=== PATIENT | male | born 1965 | race Caucasian/White ===

== ENCOUNTER 2017-12-17 17:16 | Emergency (ER) | payer OTHER ==
--- NOTE | 2017-12-17 17:28 | ER Document Report ---
ED General - General Stated Complaint: POSSIBLE OVERDOSE Time Seen by Provider: 12/17/17 17:26 Mode of Arrival: Medic Information source: Patient, Emergency Med Personnel Notes: This is a 51-year-old man with a history of hepatitis C and heroin abuse who is in a hotel with his girlfriend and he reports doing heroin by injection. He states he took 4/10 of a gram. The girlfriend apparently found him unresponsive and not breathing and cold JVD who found the patient in respiratory arrest. They bagged the patient until EMS arrived at which time the patient was given 4 mg of intranasal Narcan. The patient was awoken at that time and alert and oriented 3. The patient was told by KAYKAY Dnun that he was going to be made an IVC and brought to the emergency room if he did not voluntarily come into the ER by EMS. The patient agreed to be evaluated in the emergency room. He states he has no complaints at this time. TRAVEL OUTSIDE OF THE [place] IN LAST 30 DAYS: No - HPI Onset: Just prior to arrival Onset/Duration: Sudden Quality of pain: No pain Severity: None Pain Level: Denies Associated symptoms: denies: Chest pain, Fever, Shortness of breath Exacerbated by: Denies Relieved by: Denies Similar symptoms previously: No Recently seen / treated by doctor: No - Related Data Allergies/Adverse Reactions: No Known Allergies Allergy (Verified 02/19/16 15:40) Past Medical History - General Information source: Patient - Social History Smoking Status: Never Smoker Cigarette use (# per day): No Chew tobacco use (# tins/day): No Smoking Education Provided: No Frequency of alcohol use: None Drug Abuse: None Lives with: Family Family History: Reviewed & Not Pertinent - Medical History Medical History: Negative Pulmonary Medical History: Denies: Hx Tuberculosis Surgical Hx: Negative Review of Systems - Review of Systems Constitutional: denies: Chills, Fever EENT: No symptoms reported Cardiovascular: No symptoms reported Respiratory: No symptoms reported Gastrointestinal: No symptoms reported Genitourinary: No symptoms reported Male Genitourinary: No symptoms reported Musculoskeletal: No symptoms reported Skin: No symptoms reported Hematologic/Lymphatic: No symptoms reported Neurological/Psychological: See HPI Physical Exam - Vital signs Vitals: Resp Pulse Ox 14 96 12/17/17 17:19 12/17/17 17:19 Notes: Physical exam: GENERAL: 31-year-old man, alert and oriented 3, no acute distress HEAD: Atraumatic, normocephalic. EYES: Pupils equal round and reactive to light, extraocular movements intact, sclera anicteric, conjunctiva are normal. ENT: TMs normal, nares patent, oropharynx clear without exudates. Moist mucous membranes. NECK: Normal range of motion, supple without obvious mass or JVD. LUNGS: Breath sounds clear to auscultation bilaterally and equal. No wheezes rales or rhonchi. HEART: Regular rate and rhythm without murmurs, rubs or gallops. ABDOMEN: Soft, normoactive bowel sounds. No tenderness to palpation. No guarding, no rebound. No masses appreciated. EXTREMITIES: Normal range of motion, no pitting or edema. No clubbing or cyanosis. NEUROLOGICAL: Cranial nerves II through XII grossly intact. Normal speech, moving all extremities. PSYCH: Normal mood, normal affect. SKIN: Warm, Dry, normal turgor, no rashes or lesions noted. Course - Re-evaluation Re-evalutation: 12/17/17 19:43 Note: The patient is being watched since arrival. He has been requesting to leave for quite some time. He has been alert and oriented 3. I have explained to him that the medicine given (Narcan) may not last longer than the actual narcotic taken. If this is the case, he is risk of having relapse of his respiratory depression and cardiac arrest. He is well aware of this but is insisting on leaving. He is alert and oriented 3 and appears quite competent at this time. He denies any suicidal or homicidal ideation. He denies any hallucinations. We will give him a prescription for Narcan. I did initially request a consult with the psychologist data migration consultant which is not taken place yet. However, the patient is now willing to wait any longer. 12/18/17 00:06 - Vital Signs Vital signs: Temp Pulse Resp BP Pulse Ox 96.1 F L 100 13 140/97 H 97 12/17/17 17:26 12/17/17 17:26 12/17/17 19:31 12/17/17 19:31 12/17/17 19:31 - Laboratory Result Diagrams: 12/17/17 17:40 12/17/17 17:40 Laboratory results interpreted by me: 12/17/17 17:40 Glucose 232 H Direct Bilirubin 0.5 H AST 113 H ALT 94 H Discharge - Discharge Clinical Impression: Heroin overdose Condition: Stable Disposition: HOME, SELF-CARE Additional Instructions: As of 2017, the [place] Division of Public Health recommends the precription of Narcan (Naloxone) to patient's discharged after an opiod overdose. Naloxone is an injection that reverses the respiratory depression caused by opiates and is life-saving in many cases. Of course, it is recommended that you stop any narcotic or opiate use/abuse. However, if this is not possible, you should always carry the Naloxone with you and let family/friends know that you have this reversal antidote. Information on Naloxone can be found on: www.naloxonesaves.org Additionally: If you are using syringes with drug use, you should know that syringe exchange programs are effective in reducing the rates of HIV and Hepatitis C. Information available for syring programs can be found at: www/[facility].gov/divisions/public-health/rpzxd-vgogvoxs-ufnke-syringe-initiative/ ooajfp-wbdphcma-hnpynynn-[place]ver Prescriptions: Naloxone HCl [Narcan] 4 mg NS ONCE PRN #1 spray PRN Reason:
[2017-12-17 18:02] LABS: ABSOLUTE BASOPHILS # (AUTO) 0.1 10^3/uL (0.0-0.2); ABSOLUTE EOSINOPHILS # (AUTO) 0.4 10^3/uL (0.0-0.6); ABSOLUTE LYMPHOCYTES (AUTO) 1.8 10^3/uL (0.5-4.7); ABSOLUTE MONOCYTES (AUTO) 0.6 10^3/uL (0.1-1.4); ABSOLUTE NEUT (AUTO) 4.2 10^3/uL (1.7-8.2); BASOPHILS % (AUTO) 1.2 % (0-2); EOSINOPHILS % (AUTO) 5.6 % (0-6); HEMATOCRIT 42.7 % (37.9-51.0); HEMOGLOBIN 14.4 g/dL (13.5-17.0); LYMPHOCYTES % (AUTO) 25.8 % (13-45); MEAN CORPUSCULAR HEMOGLOBIN 30.5 pg (27.0-33.4); MEAN CORPUSCULAR HGB CONC 33.6 g/dL (32.0-36.0); MEAN CORPUSCULAR VOLUME 91 fl (80-97); MONOCYTES % (AUTO) 8.2 % (3-13); RED BLOOD COUNT 4.71 10^6/uL (4.35-5.55); RED CELL DISTRIBUTION WIDTH 13.8 % (11.5-14.0); SEGMENTED NEUTROPHILS % (AUTO) 59.2 % (42-78); TOTAL CELLS COUNTED % (AUTO) 100 %
[2017-12-17 18:12] LABS: ALANINE AMINOTRANSFERASE 94 U/L (21-72); ALBUMIN 4.5 g/dL (3.5-5.0); ALKALINE PHOSPHATASE 85 U/L (38-126); ANION GAP 13 (5-19); ASPARTATE AMINO TRANSFERASE 113 U/L (17-59); BILIRUBIN,DIRECT 0.5 mg/dL (0.0-0.4); BILIRUBIN,TOTAL 0.5 mg/dL (0.2-1.3); BLOOD UREA NITROGEN 9 mg/dL (7-20); CALCIUM 9.3 mg/dL (8.4-10.2); CARBON DIOXIDE 28 mmol/L (22-30); CHLORIDE 101 mmol/L (98-107); GLUCOSE 232 mg/dL (75-110); POTASSIUM 3.6 mmol/L (3.6-5.0); SODIUM 142.2 mmol/L (137-145); TOTAL PROTEIN 7.9 g/dL (6.3-8.2)
[2017-12-17 18:20] LABS: PLATELET COUNT 222 10^3/uL (150-450)
--- NOTE | 2017-12-17 21:23 | EKG REPORT ---
SEVERITY:- NORMAL ECG - SINUS RHYTHM : Confirmed by: Oly Hopper 17-Dec-2017 21:23:09
[2017-12-17 23:21] VITALS: BP 140/97
== END 2017-12-17 20:00 | disposition home or self-care (01) ==
LOC: ER 17:16
DX: T40.1X1A Poisoning by heroin, accidental (unintentional), initial encounter (principal); Z86.19 Personal history of other infectious and parasitic diseases
CPT/HCPCS: 36415; 80053; 85025; 93005; 93010; 99285

== ENCOUNTER 2020-01-24 14:53 | Emergency (ER) | payer OTHER ==
[2020-01-24 15:37] LABS: ABSOLUTE EOSINOPHILS # (AUTO) 0.1 10^3/uL (0.0-0.6); ABSOLUTE LYMPHOCYTES (AUTO) 0.9 10^3/uL (0.5-4.7); ABSOLUTE MONOCYTES (AUTO) 0.6 10^3/uL (0.1-1.4); ABSOLUTE NEUT (AUTO) 6.3 10^3/uL (1.7-8.2); BASOPHILS % (AUTO) 0.4 % (0-2); EOSINOPHILS % (AUTO) 0.9 % (0-6); HEMATOCRIT 39.1 % (37.9-51.0); HEMOGLOBIN 13.7 g/dL (13.5-17.0); LYMPHOCYTES % (AUTO) 11.7 % (13-45); MEAN CORPUSCULAR HEMOGLOBIN 30.8 pg (27.0-33.4); MEAN CORPUSCULAR VOLUME 88 fl (80-97); PLATELET COUNT 268 10^3/uL (150-450); RED BLOOD COUNT 4.44 10^6/uL (4.35-5.55); RED CELL DISTRIBUTION WIDTH 13.3 % (11.5-14.0); TOTAL CELLS COUNTED % (AUTO) 100 %
[2020-01-24 15:54] LABS: ACETAMINOPHEN < 10 ug/mL (10-30); ALCOHOL < 10 mg/dL (NONE DETECTED); ALKALINE PHOSPHATASE 89 U/L (38-126); ANION GAP 6 (5-19); ASPARTATE AMINO TRANSFERASE 35 U/L (17-59); BILIRUBIN,TOTAL 0.5 mg/dL (0.2-1.3); BLOOD UREA NITROGEN 14 mg/dL (7-20); CALCIUM 9.2 mg/dL (8.4-10.2); CARBON DIOXIDE 28 mmol/L (22-30); CHLORIDE 102 mmol/L (98-107); GLUCOSE 105 mg/dL (75-110); POTASSIUM 4.3 mmol/L (3.6-5.0); SALICYLATE < 1.0 mg/dL (2.0-20.0); TOTAL PROTEIN 7.6 g/dL (6.3-8.2)
[2020-01-24 15:58] LABS: AMORPHOUS SEDIMENT,URINE TRACE /HPF; APPEARANCE,URINE CLOUDY; BILIRUBIN,URINE NEGATIVE (NEGATIVE); COLOR,URINE YELLOW; GLUCOSE, URINE NEGATIVE (NEGATIVE); KETONES,URINE 20 mg/dL (NEGATIVE); LEUKOCYTE ESTERASE,URINE TRACE (NEGATIVE); NITRITE,URINE NEGATIVE (NEGATIVE); PROTEIN,URINE 30 mg/dL (NEGATIVE); URINE SPECIFIC GRAVITY 1.032
[2020-01-24 16:01] LABS: URINE BARBITURATES SCREEN NEGATIVE; URINE COCAINE SCREEN NEGATIVE; URINE MARIJUANA (THC) SCREEN NEGATIVE; URINE METHADONE SCREEN NEGATIVE; URINE PHENCYCLIDINE SCREEN NEGATIVE
--- NOTE | 2020-01-24 16:10 | RADIOLOGY REPORT (SQ) ---
EXAM DESCRIPTION: CT HEAD WITHOUT IMAGES COMPLETED DATE/TIME: 01/24/2020 4:01 pm REASON FOR STUDY: neck injury COMPARISON: None. TECHNIQUE: Axial images acquired through the brain without intravenous contrast. Images reviewed wi th bone, brain and subdural windows. Additional sagittal and coronal reconstructions were generated. Images stored on PACS. All CT scanners at this facility use dose modulation, iterative reconstruction, and/or weight based d osing when appropriate to reduce radiation dose to as low as reasonably achievable (ALARA). [facility]: Dose Right [facility]: CareDose [facility]: Dose Right [facility]: Teradose 4D [facility]: Smart [employer] RADIATION DOSE: CT Rad equipment meets quality standard of care and radiation dose reduction techniq ues were employed. CTDIvol: 53.2 mGy. DLP: 1017 mGy-cm. mGy. LIMITATIONS: None. FINDINGS: VENTRICLES: Prominent. CEREBRUM: No masses. No hemorrhage. No midline shift. Areas of low density in the white matter mos t likely due to chronic micro-vascular ischemic change. No evidence for acute infarction. CEREBELLUM: No masses. No hemorrhage. No alteration of density. No evidence for acute infarction. EXTRAAXIAL SPACES: Mild age-related involutional change. No fluid collections. No masses. ORBITS AND GLOBE: No intra- or extraconal masses. Normal contour of globe without masses. CALVARIUM: No fracture. PARANASAL SINUSES: No fluid or mucosal thickening. SOFT TISSUES: No mass or hematoma. OTHER: No other significant finding. IMPRESSION: MILD CHRONIC CHANGES OF ATROPHY AND MICROVASCULAR ISCHEMIA. NO ACUTE PROCESS. EVIDENCE OF ACUTE STROKE: NO. TECHNICAL DOCUMENTATION: JOB ID: [id number] Quality ID # [id number]: Final reports with documentation of one or more dose reduction techniques (e.g., Au tomated exposure control, adjustment of the mA and/or kV according to patient size, use of iterative reconstruction technique) 2010 [employer]- All Rights Reserved Reading location - IP/workstation name: [email or web address]
--- NOTE | 2020-01-24 16:11 | RADIOLOGY REPORT (SQ) ---
EXAM DESCRIPTION: CT CERVICAL SPINE WITHOUT IMAGES COMPLETED DATE/TIME: 01/24/2020 4:01 pm REASON FOR STUDY: neck injury COMPARISON: None. TECHNIQUE: Axial images acquired through the cervical spine without intravenous contrast. Images re viewed with lung, soft tissue and bone windows. Reconstructed coronal and sagittal MPR images review ed. Images stored on PACS. All CT scanners at this facility use dose modulation, iterative reconstruction, and/or weight based d osing when appropriate to reduce radiation dose to as low as reasonably achievable (ALARA). [facility]: Dose Right [facility]: CareDose [facility]: Dose Right [facility]: Teradose 4D [facility]: Smart [employer] RADIATION DOSE: CT Rad equipment meets quality standard of care and radiation dose reduction techniq ues were employed. CTDIvol: 16.5 mGy. DLP: 394 mGy-cm. mGy. LIMITATIONS: None. FINDINGS: ALIGNMENT: Anatomic. MINERALIZATION: Normal. VERTEBRAL BODIES: No fractures or dislocation. DISCS: Mild degenerative disc disease. FACETS, LATERAL MASSES, POSTERIOR ELEMENTS: No fractures. No dislocation. No acute findings. HARDWARE: None in the spine. VISUALIZED RIBS: No fractures. LUNG APICES AND SOFT TISSUES: No significant or acute findings. OTHER: No other significant finding. IMPRESSION: NO ACUTE OR SIGNIFICANT FINDINGS IN THE CERVICAL SPINE. TECHNICAL DOCUMENTATION: JOB ID: [id number] Quality ID # [id number]: Final reports with documentation of one or more dose reduction techniques (e.g., Au tomated exposure control, adjustment of the mA and/or kV according to patient size, use of iterative reconstruction technique) 2010 [employer]- All Rights Reserved Reading location - IP/workstation name: [email or web address]
[2020-01-24 16:27] LABS: URINE BENZODIAZEPINES SCREEN UNCONFIRMED POSITIVE
--- NOTE | 2020-01-24 17:15 | ER Document Report ---
ED General <MICHELLE TRAMMELL - Last Filed: 01/24/20 18:00> - General Mode of Arrival: Ambulatory Information source: Patient, Law Enforcement TRAVEL OUTSIDE OF THE [place] IN LAST 30 DAYS: No - HPI Onset: Just prior to arrival Onset/Duration: Sudden Quality of pain: Achy Severity: Mild Pain Level: 1 Associated symptoms: Nausea Exacerbated by: Denies Relieved by: Denies Similar symptoms previously: No Recently seen / treated by doctor: No <JUN HELMS JR - Last Filed: 01/24/20 18:26> - General Chief Complaint: Suicidal Ideation Stated Complaint: PSYCH Time Seen by Provider: 01/24/20 16:59 [facility] [[facility]] - Follow up as needed Notes: 54-year-old male arrives by police escort. He is currently incarcerated and looking to spend 15 years in half-way. Patient has been doing heroin for continuous 30 years according to patient. He says he is does not want to live anymore. This is because he was incarcerated over 24 hours ago and he spent the first 24 hours without any heroin and he decided to end it all by hanging himself with a towel. Patient has ligature gupta around his neck and CTs were negative. Beverly GOULD has been attending to him. Patient complains of nausea and narcotic withdrawal sx. I discussed this case with behavioral health Patrizia. (JUN HELMS JR) - Related Data Allergies/Adverse Reactions: No Known Allergies Allergy (Verified 02/19/16 15:40) Past Medical History - Social History Smoking Status: Current Every Day Smoker Cigarette use (# per day): Yes Chew tobacco use (# tins/day): No Smoking Education Provided: Yes Frequency of alcohol use: None Drug Abuse: Heroin Lives with: Family Family History: Reviewed & Not Pertinent Patient has suicidal ideation: Yes Patient has homicidal ideation: No Pulmonary Medical History: Denies: Hx Tuberculosis Renal/ Medical History: Denies: Hx Peritoneal Dialysis <JUN HELMS JR - Last Filed: 01/24/20 18:26> Review of Systems - Review of Systems Constitutional: No symptoms reported, Malaise EENT: No symptoms reported Cardiovascular: No symptoms reported Respiratory: No symptoms reported Gastrointestinal: See HPI, Nausea Genitourinary: No symptoms reported Male Genitourinary: No symptoms reported Musculoskeletal: No symptoms reported Skin: No symptoms reported Hematologic/Lymphatic: No symptoms reported Neurological/Psychological: No symptoms reported <JUN HELMS JR - Last Filed: 01/24/20 18:26> Physical Exam - Vital signs Interpretation: Normal - General General appearance: Alert In distress: Mild - HEENT Head: Normocephalic Eyes: Normal Conjunctiva: Normal Cornea: Normal Extraocular movements intact: Yes Eyelashes: Normal Pupils: PERRL Ears: Normal Sinus: Normal Nasal: Normal Mouth/Lips: Normal, Other - Midline tongue and oral airway intact Mucous membranes: Normal Neck: Supple, Other - Respiratory Respiratory status: No respiratory distress Chest status: Nontender Breath sounds: Normal Chest palpation: Normal - Cardiovascular Rhythm: Regular Heart sounds: Normal auscultation Murmur: No Friction rub: No Ana Maria's crunch: No - Abdominal Inspection: Normal Distension: No distension Bowel sounds: Normal Tenderness: Nontender Organomegaly: No organomegaly - Back Back: Normal - Extremities General upper extremity: Normal inspection General lower extremity: Normal inspection - Neurological Neuro grossly intact: Yes Cognition: Normal Orientation: AAOx4 Elissa Coma Scale Eye Opening: Spontaneous Elissa Coma Scale Verbal: Oriented Speech: Normal Cranial nerves: Normal Cerebellar coordination: Normal Motor strength normal: LUE, RUE, LLE, RLE - Psychological Associated symptoms: Anxious - Skin Skin Temperature: Warm Skin Moisture: Dry <JUN HELMS JR - Last Filed: 01/24/20 18:26> - Vital signs Vitals: Resp Pulse Ox 22 H 100 01/24/20 14:58 01/24/20 14:58 Course - Laboratory Result Diagrams: 01/24/20 15:27 01/24/20 15:27 <MICHELLE TRAMMELL - Last Filed: 01/24/20 18:00> - Laboratory Result Diagrams: 01/24/20 15:27 01/24/20 15:27 <JUN HELMS JR - Last Filed: 01/24/20 18:26> - Vital Signs Vital signs: Temp Pulse Resp BP Pulse Ox 98.3 F 16 117/81 98 01/24/20 15:11 01/24/20 15:01 01/24/20 15:00 01/24/20 15:01 - Laboratory Laboratory results interpreted by me: 01/24/20 01/24/20 01/24/20 15:27 15:27 15:27 Lymph % (Auto) 11.7 L Seg Neutrophils % 79.0 H Sodium 135.8 L Urine Protein 30 H Urine Ketones 20 H Urine Urobilinogen 2.0 H Ur Leukocyte Esterase TRACE H Salicylates < 1.0 L Acetaminophen < 10 L Critical Care Note - Critical Care Note Total time excluding time spent on procedures (mins): 90 <JUN HELMS JR - Last Filed: 01/24/20 18:26> - Critical Care Note Comments: This case was discussed with Patrizia [facility] who advised observation cell at half-way; may need central if sx persist (JUN HELMS JR) Discharge <TRAMMELLMICHELLE CONKLIN - Last Filed: 01/24/20 18:00> <JUN HELMS JR - Last Filed: 01/24/20 18:26> - Discharge Clinical Impression: Suicidal behavior with attempted self-injury, IV drug abuse Condition: Stable Disposition: HOME, SELF-CARE Additional Instructions: You have been evaluated by both medical and behavioral health teams for suicide attempt and have been deemed appropriate for discharge. While in the emergency department you received the following services: Medical screening and asse ssment, nursing services, dietary services, pharmacological services, one-on-one counseling and/or psychotherapy, and environmental services. Standard suicide precautions are recommended. You are encouraged to reach out to the nursing staff at the half-way if your withdrawal symptoms worsen.If symptoms persist, you may need central transfer. We encouraged observation cell with suicidal precautions with no towels, sheets, utensils, pens/pencils or other potential suicidal devices Prescriptions: Ondansetron [Zofran Odt 4 mg Tablet] 1 tab PO Q4H PRN #15 tab.rapdis PRN Reason: For Nausea/Vomiting Referrals: [facility] [[facility]] - Follow up as needed
[2020-01-24] MEDS ORDERED: ONDANSETRON 4 MG TAB.RAPDIS PO ONE (17:23)
[2020-01-24] MEDS ORDERED: FENTANYL CITRATE INJ/PF 100 MCG/2 ML AMPUL IM ONE (17:24)
[2020-01-24] MEDS ORDERED: ALPRAZOLAM 0.5 MG TABLET PO ONE (17:24)
--- NOTE | 2020-01-24 18:00 | PSYCHOLOGICAL NOTE ---
Psych Note - Psych Note Date seen by psych provider: 01/24/20 Time seen by psych provider: 17:30 Psych Note: Patient is a 54-year-old male who presents to ED via [facility] after suicide attempt. Patient is a criminal justice involved person who was found in his cell [facility] with a towel around his neck. Patient reports he attempted to hang himself while in his assisted cell. Patient stated he would rather than go through the all symptoms he is experiencing, specifically body aches and pains. Patient has a 30-year substance use history to include, to include chronic IV heroin use. Reports he is a and [facility]." Patient verbalized remorse that he ever began taking opiates. And asked if he was not experiencing withdrawal symptoms which he still want to patient responded "no." Patient reports he has never experienced withdrawal symptoms like he is currently experiencing. Clinician provided psychoeducation regarding withdrawal symptoms, progression of symptoms, and mindfulness and grounding techniques to mitigate withdrawal symptoms. Patient was somewhat receptive. Patient reports no prior mental health history. Patient is alert and oriented to person, place, time and circumstance. Mood is subdued with congruent affect. Patient is noted to be calm and cooperative with clinician. Patient endorses current suicidal ideation tied to his current circumstance of experiencing withdrawal symptoms from recent IV heroin, methamphetamine, and Xanax use. Patient denies homicidal ideations. Delusions are absent and behavior is congruent with an intact reality based presentation (i.e., organized and linear through processes). There is no observed behavior that suggests patient is responding to internal stimuli. Patient is able to engage in organized, rational thought processes. Patient is able to express ne eds and wants in a logical manner. Patient denies current auditory and visual hallucinations. Eye contact is inhibited. Patient is noted to be in physical discomfort with his eyes closed. Conversational speech is within normal rate, tone, and prosody. Intellectual ability appears to be within average range. Attention and concentration are fair. Insight, judgment and impulse control are currently fair. Impression/Plan: Patient is cleared from acute psychiatric services. Patient is a criminal justice involved person who will be returning back to the [facility] assisted at discharge. Standard suicide precautions are recommended. If patients psychological state becomes too much for [facility] to manage, transfer to [facility] is advised. Dr. Choudhary was consulted on the care and management of this patient; attending physician is in agreement with recommendations and disposition.
[2020-01-24 18:42] VITALS: BP 111/64
--- NOTE | 2020-01-24 22:30 | EKG REPORT ---
SEVERITY:- NORMAL ECG - SINUS RHYTHM : Confirmed by: Dunia Art MD 24-Jan-2020 22:29:57
== END 2020-01-24 18:42 | disposition home or self-care (01) ==
LOC: ER 14:53
DX: T14.91XA Suicide attempt, initial encounter (principal); X83.8XXA Intentional self-harm by other specified means, initial encounter; Y92.143 Cell of prison as the place of occurrence of the external cause; R11.0 Nausea; F17.210 Nicotine dependence, cigarettes, uncomplicated; F11.10 Opioid abuse, uncomplicated
CPT/HCPCS: 93005; 99291; 99292; 96372; 36415; 80307 ×4; 85025; 80053; 81001; 70450; 72125; 93010; S0119; J3010

== ENCOUNTER 2020-01-27 19:10 | Emergency (ER) | payer OTHER ==
[2020-01-27] MEDS ORDERED: PROPOFOL 1,000 MG/100 ML INFUS..BTL IV PRN (19:39)
--- NOTE | 2020-01-27 19:39 | ER Document Report ---
Entered by THANIA FISHER SCRIBE 01/27/20 1933 Acting as scribe for:ERNESTO GONZÁLES, DO ED General <ALO CLANCY - Last Filed: 01/27/20 23:33> - General Information source: Law Enforcement, Emergency Med Personnel Cannot obtain history due to: Intubated TRAVEL OUTSIDE OF THE [place] IN LAST 30 DAYS: No <ERNESTO GONZÁLES - Last Filed: 01/28/20 10:40> - General Chief Complaint: Cardiac Arrest Stated Complaint: CARDIAC ARREST [facility] [[facility]] - Follow up as needed Notes: This 54-year-old male presents to the emergency department via EMS from [facility] system after hanging himself in the skilled nursing cell. Patient has i gel in place and is unresponsive so a full HPI is unobtainable. EMS reports that the patient was found in asystole with a possible downtime of 10 minutes. Patient was given 8 epi, 1 bicarb, 1 push dose epi and was on an epi drip on arrival. Patient is a recently incarcerated heroin user who was seen in the emergency department for a psych evaluation 3 days ago with suicidal thoughts. (ERNESTO GONZÁLES) - Related Data Allergies/Adverse Reactions: No Known Allergies Allergy (Verified 01/27/20 21:20) Past Medical History - General Cannot obtain history due to: Intubated - Social History Smoking Status: Current Every Day Smoker Cigarette use (# per day): Yes Chew tobacco use (# tins/day): No Drug Abuse: Heroin Family History: Reviewed & Not Pertinent <ERNESTO GONZÁLES - Last Filed: 01/28/20 10:40> Review of Systems - Review of Systems -: Yes ROS unobtainable due to patient's medical condition <ERNESTO GONZÁLES - Last Filed: 01/28/20 10:40> Physical Exam <ERNESTO GONZÁLES - Last Filed: 01/28/20 10:40> - Vital signs Vitals: Resp BP Pulse Ox 19 102/69 100 01/27/20 19:12 01/27/20 19:12 01/27/20 19:12 - Notes Notes: Physical Exam: General: Unresponsive. Intubated. HEENT: Pupils are 3-4cm and poorly reactive to light. Oropharynx clear. Neck: Supple. Non-tender. 1 cm ulcer over the thyroid cartilage on the midline. Respiratory: No respiratory distress. Clear and equal breath sounds bilaterally. Cardiovascular: Regular rate and rhythm. Abdominal: Normal Inspection. Non-tender. No distension. Normal Bowel Sounds. Back: No gross abnormalities. Extremities: Moves all four extremities. Upper extremities: Normal inspection. Normal ROM. Lower extremities: Normal inspection. No edema. Normal ROM. Neurological: GCS: 3I Skin: Warm. Dry. Normal color. (ERNESTO GONZÁLES) Course - Laboratory Result Diagrams: 01/27/20 19:00 01/27/20 19:00 <ALO CLANCY - Last Filed: 01/27/20 23:33> - Laboratory Result Diagrams: 01/27/20 19:00 01/27/20 19:00 - Diagnostic Test Radiology reviewed: Image reviewed, Reports reviewed - EKG Interpretation by Ma EKG shows normal: Sinus rhythm Rate: Tachycardia Rhythm: NSR - Sinus Tachy Nl [place] [address] elevation or depression my interpretation. <ERNESTO GONZÁLES - Last Filed: 01/28/20 10:40> - Re-evaluation Re-evalutation: 01/27/20 22:33 MDM 54 year old male hung himself reportedly earlier today. 10 minutes asystole. Right side ptx with 1st rib fx. No other internal injuries. Cerbral edema and grim prognosis. Spoke with Dr. Salcedo at [facility] and she graciously accept the pt in transfer. 01/28/20 10:37 Decision to transfer via ground as pt is in custody - arrived from skilled nursing - and the ground transport will be here in 20 minutes it has been reported. (ERNESTO GONZÁLES) - Vital Signs Vital signs: Temp Pulse Resp BP Pulse Ox 96.3 F L 94 33 H 120/81 99 01/27/20 23:35 01/27/20 23:35 01/27/20 23:35 01/27/20 23:07 01/27/20 23:35 - Laboratory Laboratory results interpreted by me: 01/27/20 01/27/20 01/27/20 19:00 19:00 19:00 WBC 30.9 H* RBC 4.25 L Hgb 12.7 L Band Neutrophils % 8 H Abs Neuts (Manual) 21.0 H Abs Lymphs (Manual) 7.4 H Abs Monocytes (Manual) 2.2 H PT 20.1 H ABG pH ABG HCO3 ABG Total CO2 Carbon Dioxide 19 L Glucose 326 H Magnesium 2.7 H AST 518 H ALT 313 H Total Protein 6.2 L Albumin 3.3 L Urine Protein Urine Glucose (UA) Urine Blood Ur Leukocyte Esterase 01/27/20 01/27/20 19:30 20:38 WBC RBC Hgb Band Neutrophils % Abs Neuts (Manual) Abs Lymphs (Manual) Abs Monocytes (Manual) PT ABG pH 7.27 L ABG HCO3 16.3 L ABG Total CO2 17.5 L Carbon Dioxide Glucose Magnesium AST ALT Total Protein Albumin Urine Protein >=500 H Urine Glucose (UA) >=500 H Urine Blood MODERATE H Ur Leukocyte Esterase TRACE H Procedures - Chest Tube Right Time completed: 21:45 Consent obtained: No - emergent situation Chest tube pre-insertion: Sterile PPE donned, Chloraprep applied Size of [place] Tube (cm): 32 Anesthetic type: 1% Lidocaine mL's of anesthetic: 8 Chest tube post-insertion: Air hilliard heard, Sutured, Position confirmed w/ CXR, Low intermittent suction Number of attempts: 2 Complications: No - Intubation Orotracheal Airway evaluation: Normal anatomy Mallampati Classification: Class 3 Medications: Other Intubation method: Orotracheal Blade type: [place] Blade size: 4 Equipment used: Glidescope ETT size: 7.5 ETT secured at: Teeth ETT secured at (cm): 24 Breath Sounds after Intubation: Equal End tidal CO2 confirmed: Yes Ventilator settings: SIMV Tidal volume: 450 FiO2: 60 Respirations: 12 PEEP: 5 Post Intubation Xray: Yes Intubation Complications: No complications - He had an igel airway in place not an orotracheal airway. Therefore, that airway was removed and he had a definitive airway placed in the ED with 1 pass without complications. <ERNESTO GONZÁLES P - Last Filed: 01/28/20 10:40> Critical Care Note - Critical Care Note Total time excluding time spent on procedures (mins): 45 <ERNESTO GONZÁLES P - Last Filed: 01/28/20 10:40> - Critical Care Note Comments: This represents time performing bedside care and receiving report from EMS, review of old chart from 2 days ago, speaking with the ICU provider here, speaking with the transfer center and the trauma physician at [facility]. (ERNESTO GONZÁLES) Discharge <ALO CLANCY - Last Filed: 01/27/20 23:33> <ERNESTO GONZÁLES - Last Filed: 01/28/20 10:40> - Discharge Clinical Impression: Suicidal intent, Respiratory failure after trauma Hanging Qualifiers: Encounter type: initial encounter Qualified Code(s): T71.164A - Asphyxiation due to hanging, undetermined, initial encounter Pneumothorax Qualifiers: Pneumothorax type: traumatic Encounter type: initial encounter Qualified Code(s): S27.0XXA - Traumatic pneumothorax, initial encounter Condition: Critical Disposition: [facility]errals: [facility] [[facility]] - Follow up as needed Doctor's Note <ALO CLANCY - Last Filed: 01/27/20 23:33> Notes: 01/27/20 23:38 Patient is being transferred to [facility] trauma services in [facility]. Evaluation at the time of transfer, patient is hemodynamically stable, intubated with a chest tube. Transport team successfully moved the patient onto the stretcher without incident. Patient stable for transport. (ALO CLANCY) I personally performed the services described in the documentation, reviewed and edited the documentation which was dictated to the scribe in my presence, and it accurately records my words and actions.
[2020-01-27] MEDS ORDERED: LORAZEPAM INJ 2 MG/1 ML VIAL IV ONE ×2 (19:42→22:12)
[2020-01-27] MEDS: NORMAL SALINE 1000 ML 1,000 ML IV PRN ×2 (19:49→21:54)
--- NOTE | 2020-01-27 20:07 | RADIOLOGY REPORT (SQ) ---
EXAM DESCRIPTION: CHEST SINGLE VIEW IMAGES COMPLETED DATE/TIME: 01/27/2020 7:59 pm REASON FOR STUDY: post arrest COMPARISON: None. EXAM PARAMETERS: NUMBER OF VIEWS: One view. TECHNIQUE: Single frontal radiographic view of the chest acquired. RADIATION DOSE: NA LIMITATIONS: None. FINDINGS: LUNGS AND PLEURA: Parenchymal opacities at the left base. MEDIASTINUM AND HILAR STRUCTURES: No masses. Contour normal. HEART AND VASCULAR STRUCTURES: Heart normal in size. Normal vasculature. BONES: No acute findings. HARDWARE: ETT and NG tube in expected location. OTHER: Considerable chest wall and neck emphysema. IMPRESSION: Parenchymal opacities at the left base. Support devices in expected locations. Considerable chest wall and neck emphysema. TECHNICAL DOCUMENTATION: JOB ID: [id number] 2010 [employer]- All Rights Reserved Reading location - IP/workstation name: [email or web address]
--- NOTE | 2020-01-27 20:35 | EKG REPORT ---
SEVERITY:- ABNORMAL ECG - SINUS TACHYCARDIA NONSPECIFIC INTRAVENTRICULAR CONDUCTION DELAY NONSPECIFIC ST-T CHANGES- ANTERIOR LEADS : Confirmed by: Ernie Vallejo MD 27-Jan-2020 20:34:13
--- NOTE | 2020-01-27 20:47 | RADIOLOGY REPORT (SQ) ---
EXAM DESCRIPTION: CT HEAD WITHOUT IV CONTRAST COMPLETED DATE/TME: 01/27/2020 8:04 PM CLINICAL HISTORY: arrest COMPARISON: CT cervical spine performed the same day. TECHNIQUE: Contiguous axial images of the brain were obtained without the administration of intravenous contrast. This exam was performed according to our departmental dose-optimization program, which includes automated exposure control, adjustment of the mA and/or kV according to patient size and/or use of iterative reconstruction technique. FINDINGS: There is diffuse loss of the [place]-white matter differentiation worrisome for global ischemia. There is no intracranial hemorrhage. Ventricular system is nondilated. Subcutaneous emphysema noted. Concomitant CT cervical spine also demonstrates a diffuse emphysema and a right pneumothorax. There is no skull fracture. IMPRESSION: Loss of the [place]-white matter differentiation worrisome/compatible with global ischemia. Subcutaneous emphysema. Right pneumothorax. Findings were discussed with Dr. Foreman at the time of dictation.
--- NOTE | 2020-01-27 20:53 | RADIOLOGY REPORT (SQ) ---
EXAM DESCRIPTION: CT CERVICAL SPINE WITHOUT IV CONTRAST COMPLETED DATE/TME: 01/27/2020 8:06 PM CLINICAL HISTORY: hanging COMPARISON: None Available TECHNIQUE: Contiguous axial images of the cervical spine were obtained without the administration of intravenous contrast followed by reconstruction images. This exam was performed according to our departmental dose-optimization program, which includes automated exposure control, adjustment of the mA and/or kV according to patient size and/or use of iterative reconstruction technique. FINDINGS: There is no acute fracture or subluxation. Prevertebral soft tissues are within normal limits. There is diffuse subcutaneous emphysema at the level of the neck extending into the skull. There is a right-sided pneumothorax. There is an endotracheal tube and NG tube visualized. The endotracheal tube ends at the thoracic inlet. There is a pneumomediastinum. There is a nondisplaced fracture of the right first rib. There is osteophytic formation and intervertebral disc space narrowing at C5-C6 with bilateral neural foramina narrowing. IMPRESSION: No acute fracture or subluxation of the cervical spine. Nondisplaced fracture of the right first rib.. Right-sided pneumothorax. Dr. Foreman was notified at time of dictation. The endotracheal tube ends at the thoracic inlet.
[2020-01-27 20:59] LABS: ARTERIAL BLOOD BASE EXCESS -9.8 mmol/L; ARTERIAL BLOOD H2CO3 1.11 mmol/L (1.05-1.35); ARTERIAL BLOOD HCO3 16.3 mmol/L (20-24); ARTERIAL BLOOD O2 SATURATION 96.4 % (94-98); ARTERIAL BLOOD PCO2 36.8 mmHg (35-45); ARTERIAL BLOOD PH 7.27 (7.35-7.45); ARTERIAL BLOOD PO2 95.3 mmHg (80-100); ARTERIAL BLOOD TOTAL CO2 17.5 mmol/L (23-27)
[2020-01-27 21:00] LABS: ARTERIAL BLOOD FIO2 70%
[2020-01-27 21:25] LABS: HEMATOCRIT 39.4 % (37.9-51.0); HEMOGLOBIN 12.7 g/dL (13.5-17.0); MEAN CORPUSCULAR HEMOGLOBIN 29.9 pg (27.0-33.4); MEAN CORPUSCULAR HGB CONC 32.2 g/dL (32.0-36.0); PLATELET COUNT 270 10^3/uL (150-450); RED BLOOD COUNT 4.25 10^6/uL (4.35-5.55); RED CELL DISTRIBUTION WIDTH 13.6 % (11.5-14.0)
[2020-01-27 21:31] LABS: ALBUMIN 3.3 g/dL (3.5-5.0); ALKALINE PHOSPHATASE 99 U/L (38-126); ANION GAP 16 (5-19); BILIRUBIN,DIRECT 0.2 mg/dL (0.0-0.4); BILIRUBIN,TOTAL 0.6 mg/dL (0.2-1.3); BLOOD UREA NITROGEN 11 mg/dL (7-20); CALCIUM 8.7 mg/dL (8.4-10.2); CARBON DIOXIDE 19 mmol/L (22-30); CHLORIDE 103 mmol/L (98-107); GLUCOSE 326 mg/dL (75-110); POTASSIUM 3.8 mmol/L (3.6-5.0); TOTAL PROTEIN 6.2 g/dL (6.3-8.2)
[2020-01-27 21:33] LABS: INTERNATIONAL RATION (INR) 1.69; PROTHROMBIN TIME 20.1 SEC (11.4-15.4)
[2020-01-27 21:37] LABS: ASPARTATE AMINO TRANSFERASE 518 U/L (17-59)
[2020-01-27 21:42] LABS: MEAN CORPUSCULAR VOLUME 93 fl (80-97)
[2020-01-27 21:45] LABS: ABSOLUTE LYMPHOCYTES# (MANUAL) 7.4 10^3/uL (0.5-4.7); ABSOLUTE MONOCYTES # (MANUAL) 2.2 10^3/uL (0.1-1.4); BAND NEUTROPHILS % (MANUAL) 8 % (3-5); BASOPHILS % (MANUAL) 0 % (0-2); EOSINOPHILS % (MANUAL) 1 % (0-6); LYMPHOCYTES % (MANUAL) 24 % (13-45); MONOCYTES % (MANUAL) 7 % (3-13); SEGMENTED NEUTROPHILS % (MAN) 60 % (42-78); TOTAL CELLS COUNTED 100
[2020-01-27 21:47] LABS: BURR CELLS SLIGHT; POIKILOCYTOSIS SLIGHT
[2020-01-27 21:48] LABS: PLATELET COMMENT ADEQUATE; PLATELET LARGE PRESENT
[2020-01-27 21:51] LABS: WHITE BLOOD COUNT 30.9 10^3/uL (4.0-10.5)
[2020-01-27 21:59] LABS: APPEARANCE,URINE CLOUDY; BILIRUBIN,URINE NEGATIVE (NEGATIVE); COLOR,URINE YELLOW; GLUCOSE, URINE >=500 mg/dL (NEGATIVE); KETONES,URINE NEGATIVE (NEGATIVE); LEUKOCYTE ESTERASE,URINE TRACE (NEGATIVE); NITRITE,URINE NEGATIVE (NEGATIVE); PROTEIN,URINE >=500 mg/dL (NEGATIVE); URINE SPECIFIC GRAVITY 1.009; UROBILINOGEN,URINE NEGATIVE mg/dL (<2.0)
[2020-01-27] MEDS ORDERED: CEFTRIAXONE 1 GM/D5W RTU 1 GM/50 ML RTUPB IV ONE (22:21)
--- NOTE | 2020-01-27 22:35 | RADIOLOGY REPORT (SQ) ---
EXAM DESCRIPTION: XR CHEST 1 VIEW COMPLETED DATE/TME: 01/27/2020 9:41 PM CLINICAL HISTORY: 54 years Male CHEST TUBE PLACEMENT COMPARISON: None. FINDINGS: Study is limited by film technique. There is hyperlucency over the right hemithorax with a deep sulcus sign suggesting pneumothorax as well as subcutaneous emphysema over the right chest and neck. No definite thoracostomy tube is seen on this image. Multiple overlying monitoring devices are noted. Nasogastric tube appears in place. Endotracheal tube above the [place]. Subsequent film demonstrating chest tube placement is also provided. IMPRESSION: Findings suggesting right pneumothorax without definite chest tube identified on this film. A subsequent film is also available at this time demonstrating placement of a chest tube.
--- NOTE | 2020-01-27 22:41 | RADIOLOGY REPORT (SQ) ---
EXAM DESCRIPTION: AP portable radiograph of the chest. CLINICAL HISTORY: 54 years Male, CHEST TUBE REPOSITION postarrest. COMPARISON: Portable view of the chest obtained earlier in the day at 9:41 PM FINDINGS: Lungs: The chest tube has been placed into the pleural cavity and now abuts the mediastinum. Pneumothorax has decreased in size and only a small component persists. It extends up 9 mm off the lateral chest wall and 1.9 cm from the lung apex. There is improvement in the flattening of the right hemidiaphragm and shifting of the mediastinum. Extensive subcutaneous emphysema is seen in the superior mediastinum and neck. Mediastinum: Heart size is within normal limits. Endotracheal tube terminates 8 cm above the [place]. NG tube passes through the esophagus and into the stomach. Bones: Osseous structures are normal. IMPRESSION: Interval replacement of the right-sided chest tube with decrease in right pneumothorax. Endotracheal tube at the thoracic inlet.
[2020-01-27 23:12] VITALS: BP 120/81
[2020-01-28 11:27] LABS: PATH REVIEW PATHOLOGIST REVIEWED
== END 2020-01-27 23:35 | disposition short-term general hospital (02) ==
LOC: ER 19:10
DX: T71.162A Asphyxiation due to hanging, intentional self-harm, initial encounter (principal); S27.0XXA Traumatic pneumothorax, initial encounter; J96.00 Acute respiratory failure, unspecified whether with hypoxia or hypercapnia; I46.9 Cardiac arrest, cause unspecified; F17.210 Nicotine dependence, cigarettes, uncomplicated; X83.8XXA Intentional self-harm by other specified means, initial encounter; Y92.143 Cell of prison as the place of occurrence of the external cause
CPT/HCPCS: 93005; 96376; 99291; 96361; 96375; 96365; 36415; 82803; 83735; 85025; 85610; 80053; 81001; 84484; 71045; 70450; 72125; 94660; 93010; 31500; 32551; J2704; J2060; J7030; J0696; 94002